=== PATIENT | female | born 1980 | race Two or more races ===

== ENCOUNTER 2023-02-26 04:37 | Emergency (ER) | payer OTHER ==
[~2023-02-26] VITALS: Ht 165.1 cm; Wt 59.0 kg
[2023-02-26 08:32] LABS: HEMATOCRIT 33.2 % (36.0-45.00); HEMOGLOBIN 10.8 g/dL (12.0-15.00); MEAN CELL VOLUME 75.1 fL (80.00-100.00); MEAN CORPUSCULAR HEMOGLOBIN 24.5 pg (27.00-32.0); MEAN CORPUSCULAR HGB CONC 32.6 g/dl (32.0-36.0); PLATELET COUNT 262 K/uL (150-450); RED BLOOD COUNT 4.42 M/uL (4.00-6.00); RED CELL DISTRIBUTION WIDTH 16.4 % (11.5-14.5)
[2023-02-26 08:46] LABS: ALBUMIN 3.6 gm/dL (3.4-5.0); BILIRUBIN TOTAL 5.69 mg/dL (0.3-1.2); BILIRUBIN,CONJUGATED 3.89 mg/dL (0.0-0.2); BILIRUBIN,UNCONJUGATED 1.8 mg/dL (0.0-0.6); CALCIUM 8.4 mg/dL (8.5-10.1); CREATININE SERUM 0.64 mg/dL (0.55-1.02); GFR 102.26; GLOBULINA 3.5 G/DL (2.4-3.5); POTASSIUM 3.43 mEq/L (3.5-5.1); TOTAL PROTEIN 7.1 gm/dL (6.4-8.2)
== END 2023-02-26 10:28 | disposition home or self-care (01) ==
LOC: ER 04:38
PROVIDERS: General Practice
DX: R10.9 Unspecified abdominal pain (principal); Z88.2 Allergy status to sulfonamides; K58.9 Irritable bowel syndrome, unspecified